=== PATIENT | male | born 1940 | race Caucasian/White ===

== ENCOUNTER 2025-01-09 10:50 | Outpatient (CLI) | payer MEDICARE, OTHER | END 2025-01-09 23:59 | disposition home or self-care (01) | LOC: RAD 10:50 | PROVIDERS: ATTEND Physician Assistant Surgical | DX: M25.511 Pain in right shoulder (principal); M46.1 Sacroiliitis, not elsewhere classified; M25.552 Pain in left hip; M75.41 Impingement syndrome of right shoulder; M19.011 Primary osteoarthritis, right shoulder; M25.551 Pain in right hip | CPT/HCPCS: 73200 ==